=== PATIENT | female | born 2000 | race Caucasian/White ===

== ENCOUNTER 2021-01-28 09:18 | Emergency (ER) | payer OTHER ==
[2021-01-28 09:25] VITALS: BP 147/90
[2021-01-28] MEDS ORDERED: cephALEXin 250 MG CAPSULE PO STA (09:42)
[2021-01-28] MEDS ORDERED: BACITRACIN ZINC OINT 1 PACKET TOP STA (09:42)
--- NOTE | 2021-01-28 09:44 | ED Physician Documentation ---
PD HPI WOUND RECHECK - Stated complaint Stated Complaint: MORALES ON LEGS - Chief complaint Chief Complaint: Wound - Histroy obtained from History obtained from: Patient - Additional information Additional information: On 10 January she developed severe sunburn to both shins which developed large blisters and subsequently on 14 January opened up. She has persistent pain and redness around there which is slightly spreading. No fevers. Review of Systems Constitutional: denies: Fever, Chills Eyes: reports: Reviewed and negative Ears: reports: Reviewed and negative Nose: reports: Reviewed and negative PD PAST MEDICAL HISTORY - Present Medications Home Medications: Ambulatory Orders Medication Instructions Recorded Confirmed Mupirocin 2% Oint [Bactroban 2% 1 applic TOP BID #50 gm 01/28/21 Oint] cephALEXin [Keflex] 500 mg PO Q6H #28 cap 01/28/21 - Allergies Allergies/Adverse Reactions: Allergies Allergy/AdvReac Type Severity Reaction Status Date / Time No Known Drug Allergies Allergy Verified 01/28/21 09:25 PD ED PE NORMAL - Vitals Vital signs reviewed: Yes - General General: Alert and oriented X 3, No acute distress - HEENT HEENT: PERRL, EOMI - Neck Neck: Supple, no meningeal sign, No bony TTP - Extremities Extremities: Other (Two ulcerative lesions on each antonio with small weepy drainage and surrounding cellulitis of both legs.) - Neuro Neuro: Alert and oriented X 3, Normal speech Results - Vitals Vitals: Vital Signs - 24 hr 01/28/21 09:22 Temperature 36.0 C L Heart Rate 84 Respiratory 16 Rate Blood Pressure 147/90 H O2 Saturation 99 Oxygen O2 Source Room air Departure - Departure Disposition: 01 Home, Self Care Clinical Impression: Cellulitis Qualifiers: Site of cellulitis: extremity Site of cellulitis of extremity: lower extremity Laterality: unspecified laterality Qualified Code(s): L03.119 - Cellulitis of unspecified part of limb Condition: Good Record reviewed to determine appropriate education?: Yes Instructions: Cellulitis Dc Prescriptions: Mupirocin 2% Oint [Bactroban 2% Oint] 1 applic TOP BID #50 gm cephALEXin [Keflex] 500 mg PO Q6H #28 cap Comments: We are performing a wound culture, the results should be done in 48-72 hours. If antibiotic change is necessary we will call you. Return if worse in the meantime, especially if you develop increased pain, fevers, cannot keep down the medication. Otherwise follow-up with your physician in approximately 2-3 days.
== END 2021-01-28 10:32 | disposition home or self-care (01) ==
LOC: ED 09:18
DX: L03.116 Cellulitis of left lower limb (principal); L03.115 Cellulitis of right lower limb
CPT/HCPCS: 87070; 87077; 87181; 87205; 99283; 99284; A9270